=== PATIENT | female | born 1990 | race Caucasian/White ===

== ENCOUNTER → 2016-12-19 | Outpatient (CLI) | payer BC ==
--- NOTE | 2016-12-20 09:49 | US ---
Examination: Greater than 14 weeks transabdominal ultrasound with color Doppler and M-mode evaluatio n. HISTORY: Supervision abnormal FINDINGS: LMP is 05/14/2016 EVALUATION: Posterior placenta with a cephalic lie and grade 2. Visually amniotic fluid is wit hin normal limits. The cervix is not well characterized. Three-vessel cord is seen. Ventricles are within normal limits. Four chamber heart is noted. Heart rate is 157 beats per minute. BIOMETRY AND GESTATIONAL AGE: Biparietal diameter 8.4 cm. The abdominal circumference measures 26 cm. The femoral length is 6.6 cm with head circumference of 29.1 cm. Gestational age is 31 weeks and 2 days. The expected date of de livery is approximately 02/18/2017. Fetus weight is 1541 grams. Overall the fetus is within the 12th percentile. Other detail anatomy summarized into PACs sheet after the images. No anatomical anomalies. However fine detail is limited secondary to age. IMPRESSION: Single active IU with cephalic fetus. Posterior placenta with grade 2. No anomalies are se en. Amniotic fluid appears within normal limits.
== END ==
LOC: MW.US 14:36
PROVIDERS: ATTEND Advanced Practice Midwife
DX: Z34.93 Encounter for supervision of normal pregnancy, unspecified, third trimester (principal); Z3A.31 31 weeks gestation of pregnancy
CPT/HCPCS: 76805; 76805-26

== ENCOUNTER 2017-02-27 19:01 | Inpatient (IN) | payer BC, MEDICAID ==
[2017-02-27] MEDS ORDERED: Carboprost Tromethamine 250 MCG/1 ML Amp IM PRN (20:19)
[2017-02-27] MEDS ORDERED: Sodium Chloride 0.9% 2.5 ML Syringe FLUSH PRN (20:19)
[2017-02-27] MEDS ORDERED: Lidocaine 1% 50 ML MDV INJECT PRN (20:19)
[2017-02-27] MEDS ORDERED: Nalbuphine 10 MG/1 ML Vial IVPUSH PRN (20:19)
[2017-02-27] MEDS ORDERED: Sodium Chloride 0.9% 10 ML Syringe FLUSH PRN (20:19)
[2017-02-27] MEDS ORDERED: Misoprostol 200 MCG Tab PO PRN (20:19)
[2017-02-27] MEDS ORDERED: Methylergonovine 0.2 MG/1 ML Amp IM PRN (20:19)
[2017-02-27] MEDS ORDERED: Water For Irrigation,Sterile 1,000 ML Container IRR PRN (20:19)
[2017-02-27] MEDS ORDERED: Terbutaline 1 MG/ML SDV SUBCUT PRN (20:19)
[2017-02-27] MEDS ORDERED: Oxytocin/Lactated Ringers 30 UNIT/500 ML BAG IV SCH (20:30)
[2017-02-27] MEDS ORDERED: Misoprostol 25 MCG (1/4 of 100 MCG) Tab PO SCH (21:00)
[2017-02-27] MEDS ORDERED: Misoprostol 25 MCG (1/4 of 100 MCG) Tab VAG SCH (21:00)
--- NOTE | 2017-02-27 21:04 | PCM.LDHP ---
L&D History of Present Illness - General Date of Service: 02/27/17 Admit Problem/Dx: Patient Status Order with Admit Dx/Problem 02/27/17 20:19 Patient Status [ADT] Routine Admission Diagnosis/Problem Admission Diagnosis/Problem 02/27/17 20:59 26yo EDC 02/18/2017 41 3/7 wks. IOL for post dates, A+, RI, GBS neg. Source of Information: Patient History Limitations: Reports: No Limitations - History of Present Illness Improves with: Reports: None Worsens with: Reports: None Associated Symptoms: Reports: N - Related Data Allergies/Adverse Reactions: Allergies Allergy/AdvReac Type Severity Reaction Status Date / Time No Known Allergies Allergy Verified 04/27/16 22:51 Home Medications: Home Meds . [No Known Home Meds] 04/27/16 [History] Past Medical History Genitourinary History: Reports: Other (See Below) Other Genitourinary History: kidney infections, pyloric stenosis - Infectious Disease History Infectious Disease History: Reports: Chicken Pox - Past Surgical History Female Surgical History: Reports: Other (See Below) Social & Family History - Family History Endocrine/Metabolic: Reports: Diabetes, type II - Tobacco Use Smoking Status *Q: Current Every Day Smoker Years of Tobacco use: 10 Packs/Tins Daily: 1 - Caffeine Use Caffeine Use: Reports: None - Recreational Drug Use Recreational Drug Use: No H&P Review of Systems - Review of Systems: Review Of Systems: See Below General: Reports: No Symptoms HEENT: Reports: No Symptoms Pulmonary: Reports: No Symptoms Cardiovascular: Reports: No Symptoms Gastrointestinal: Reports: No Symptoms Genitourinary: Reports: No Symptoms Musculoskeletal: Reports: No Symptoms Skin: Reports: No Symptoms Psychiatric: Reports: No Symptoms Neurological: Reports: No Symptoms Hematologic/Lymphatic: Reports: No Symptoms Immunologic: Reports: No Symptoms L&D Exam - Exam Exam: See Below - Vital Signs Weight: 50.802 kg - Boyer Score Boyer Score Cervix Position: Midposition Boyer Score Consistency: Soft Boyer Score Effacement: 51-70% Boyer Score Dilation: 1-2 cm Boyer Score Infant's Station: -2 Boyer Score Total: 7 - Exam General: Alert, Oriented, Cooperative HEENT: Hearing Intact Lungs: Normal Respiratory Effort GI/Abdominal Exam: Soft, Non-Tender (gravid) Rectal Exam: Deferred Back Exam: Full Range of Motion Extremities: Normal Range of Motion, Non-Tender Skin: Warm, Dry, Intact Neurological: Cranial Nerves Intact, Normal Gait, Normal Speech, Normal Tone Psychiatric: Alert, Normal Affect, Normal Mood - Patient Data Lab Results Last 24 hrs: Laboratory Results - last 24 hr 02/27/17 Range/Units 20:38 WBC 10.02 (4.0-11.0) K/uL RBC 3.87 L (4.30-5.90) M/uL Hgb 12.1 (12.0-16.0) g/dL Hct 35.3 L (36.0-46.0) % MCV 91.2 (80.0-98.0) fL MCH 31.3 (27.0-32.0) pg MCHC 34.3 (31.0-37.0) g/dL RDW Std Deviation 44.0 (28.0-62.0) fl RDW Coeff of Abdias 13 (11.0-15.0) % Plt Count 188 (150-400) K/uL MPV 10.70 (7.40-12.00) fL Nucleated RBC % 0.0 /100WBC Nucleated RBCs # 0 K/uL Result Diagrams: 02/27/17 20:38 - Problem List (1) Supervision of normal IUP (intrauterine ) in multigravida SNOMED Code(s): 087753365, 492507875, 563678956 ICD Code: Z34.80 - ENCOUNTER FOR SUPRVSN OF NORMAL , UNSP TRIMESTER Status: Acute Priority: High Qualifiers: Trimester: third trimester Qualified Code(s): Z34.83 - Encounter for supervision of other normal , third trimester (2) Post-dates SNOMED Code(s): 68844565 ICD Code: O48.0 - POST-TERM Status: Acute Priority: High Qualifiers: Post-term type: 40-42 weeks gestation Qualified Code(s): O48.0 - Post-term Problem List Initiated/Reviewed/Updated: Yes Orders Last 24hrs: Active Orders 24 hr Category Date Time Status Patient Status [ADT] Routine ADT 02/27/17 20:19 Active Bedrest Bathroom Privileges [RC] ASDIRECTED Care 02/27/17 20:19 Active Communication Order [RC] ASDIRECTED Care 02/27/17 20:19 Active Communication Order [RC] ASDIRECTED Care 02/27/17 20:19 Active Communication Order [RC] ASDIRECTED Care 02/27/17 20:19 Active Heart Tones [RC] CONTINUOUS Care 02/27/17 20:19 Active Non Stress Test [RC] PER UNIT ROUTINE Care 02/27/17 20:19 Active May Shower [RC] ASDIRECTED Care 02/27/17 20:19 Active Notify Provider [RC] PRN Care 02/27/17 20:19 Active Notify Provider [RC] PRN Care 02/27/17 20:19 Active Notify Provider [RC] PRN Care 02/27/17 20:19 Active Notify Provider [RC] STAT Care 02/27/17 20:19 Active Oxygen Therapy [RC] ASDIRECTED Care 02/27/17 20:19 Active Up ad Jazmín [RC] ASDIRECTED Care 02/27/17 20:19 Active Vaginal Exam [RC] PRN Care 02/27/17 20:19 Active Vaginal Exam [RC] PRN Care 02/27/17 20:19 Active Vital Signs [RC] PER UNIT ROUTINE Care 02/27/17 20:19 Active Vital Signs [RC] PER UNIT ROUTINE Care 02/27/17 20:19 Active Regular Diet [DIET] Diet 02/28/17 Breakfast Active TYPE AND SCREEN [BBK] Routine Lab 02/27/17 20:38 Received Carboprost Tromethamine [Hemabate DS] Med 02/27/17 20:19 Active 250 mcg IM ASDIRECTED PRN Lactated Ringers [Ringers, Lactated] 1,000 ml Med 02/27/17 20:30 Active IV ASDIRECTED Lidocaine 1% [Xylocaine 1%] Med 02/27/17 20:19 Active 50 ml INJECT .ONCE PRN Methylergonovine [Methergine] Med 02/27/17 20:19 Active 0.2 mg IM ASDIRECTED PRN Misoprostol [Cytotec] Med 02/27/17 20:19 Active 200 mcg PO .ONCE PRN Misoprostol [Cytotec] Med 02/27/17 21:00 Active 25 mcg PO .ONCE Misoprostol [Cytotec] Med 02/28/17 01:00 Active 25 mcg PO Q4H PRN Misoprostol [Cytotec] Med 02/27/17 21:00 Active 25 mcg VAG .ONCE Misoprostol [Cytotec] Med 02/28/17 01:00 Active 25 mcg VAG Q4H PRN Nalbuphine [Nubain] Med 02/27/17 20:19 Active 10 mg IVPUSH Q1H PRN Oxytocin/Lactated Ringers [Pitocin in LR 30 Units/500 Med 02/27/17 20:30 Active ML] 30 unit in 500 ml IV TITRATE Oxytocin/Lactated Ringers [Pitocin in LR 30 Units/500 Med 02/28/17 12:00 Active ML] 30 unit in 500 ml IV TITRATE Sodium Chloride 0.9% [Saline Flush] Med 02/27/17 20:19 Active 10 ml FLUSH ASDIRECTED PRN Sodium Chloride 0.9% [Saline Flush] Med 02/27/17 20:19 Active 2.5 ml FLUSH ASDIRECTED PRN Terbutaline [Brethine] Med 02/27/17 20:19 Active 0.25 mg SUBCUT ASDIRECTED PRN Water For Irrigation,Sterile [Sterile Water for Med 02/27/17 20:19 Active Irrigation] 1,000 ml IRR ASDIRECTED PRN Scalp Electrode [WOMSER] Per Unit Routine Ot 02/27/17 20:19 Ordered Medication Administration Instruction [OM.PC] Q3H Oth 02/27/17 20:30 Ordered Peripheral IV Insertion Adult [OM.PC] Routine Oth 02/27/17 20:19 Ordered Resuscitation Status Routine Resus Stat 02/27/17 20:19 Ordered Medication Orders Carboprost Tromethamine (Hemabate Ds) 250 mcg IM ASDIRECTED PRN PRN Reason: Post Hemorrhage Lactated Ringer's (Ringers, Lactated) 1,000 mls @ 150 mls/hr IV ASDIRECTED ALEXANDRA Oxytocin/Lactated Ringer's (Pitocin In Lr 30 Units/500 Ml) 30 unit in 500 mls @ 2 mls/hr IV TITRATE ALEXANDRA; 2 MUNITS/MIN PRN Reason: Protocol Oxytocin/Lactated Ringer's (Pitocin In Lr 30 Units/500 Ml) 30 unit in 500 mls @ 500 mls/hr IV TITRATE ALEXANDRA PRN Reason: 500 MUNITS/MIN Stop: 02/28/17 12:59 Lidocaine HCl (Xylocaine 1%) 50 ml INJECT .ONCE PRN PRN Reason: Laceration repair Methylergonovine Maleate (Methergine) 0.2 mg IM ASDIRECTED PRN PRN Reason: Post Hemorrhage Misoprostol (Cytotec) 25 mcg VAG .ONCE ALEXANDRA Misoprostol (Cytotec) 25 mcg VAG Q4H PRN PRN Reason: Cervical Ripening Stop: 03/01/17 05:01 Misoprostol (Cytotec) 200 mcg PO .ONCE PRN PRN Reason: Post Hemorrhage Misoprostol (Cytotec) 25 mcg PO .ONCE ALEXANDRA Misoprostol (Cytotec) 25 mcg PO Q4H PRN PRN Reason: Cervical Ripening Stop: 03/01/17 05:01 Nalbuphine HCl (Nubain) 10 mg IVPUSH Q1H PRN PRN Reason: Pain (severe 7-10) Stop: 02/27/17 22:20 Sodium Chloride (Saline Flush) 10 ml FLUSH ASDIRECTED PRN PRN Reason: Keep Vein Open Sodium Chloride (Saline Flush) 2.5 ml FLUSH ASDIRECTED PRN PRN Reason: Keep Vein Open Sterile Water (Sterile Water For Irrigation) 1,000 ml IRR ASDIRECTED PRN PRN Reason: delivery Terbutaline Sulfate (Brethine) 0.25 mg SUBCUT ASDIRECTED PRN PRN Reason: Tacysystole Assessment/Plan Comment:: IOL A: 26yo EDC 02/18/2017 41 3/7 wks. IOL for post dates, A+, RI, GBS neg. P: Admit to L&D, Cytotec IOL, then pitocin in the am. Epidural/pain meds prn, anticipate
[2017-02-27] MEDS ORDERED: Misoprostol 25 MCG (1/4 of 100 MCG) Tab ONE ×2 (21:07→21:08)
[2017-02-28] MEDS ORDERED: Nalbuphine 10 MG/1 ML Vial IVPUSH PRN ×2 (00:24→19:12)
[2017-02-28] MEDS ORDERED: Misoprostol 25 MCG (1/4 of 100 MCG) Tab PO PRN (01:15)
[2017-02-28] MEDS ORDERED: Misoprostol 25 MCG (1/4 of 100 MCG) Tab VAG PRN (01:15)
[2017-02-28] MEDS ORDERED: Misoprostol 25 MCG (1/4 of 100 MCG) Tab ONE (01:18)
[2017-02-28] MEDS: Misoprostol 25 MCG (1/4 of 100 MCG) Tab PO PRN ×2 (01:23→05:07)
[2017-02-28] MEDS: Misoprostol 25 MCG (1/4 of 100 MCG) Tab VAG PRN ×2 (01:23→05:07)
[2017-02-28] MEDS: Lactated Ringers 1,000 ML IV SCH ×3 (09:19→14:38)
--- NOTE | 2017-02-28 09:50 | PCM.PREANE ---
Preanesthetic Assessment - Anesthesia/Transfusion/Family Hx Anesthesia History: Prior Anesthesia Without Reaction Transfusion History: No Prior Transfusion(s) - Review of Systems General: No Symptoms Pulmonary: No Symptoms Cardiovascular: No Symptoms Gastrointestinal: No Symptoms Neurological: No Symptoms Other: Reports: None - Physical Assessment Vital Signs: Last Vital Signs Temp 97.8 F 02/27/17 21:05 Pulse Resp BP Pulse Ox Height: 5 ft 6 in Weight: 50.802 kg ASA Class: 2 Mental Status: Alert & Oriented x3 Airway Class: Mallampati = 2 Dentition: Reports: Normal Dentition Thyro-Mental Finger Breadths: 3 Mouth Opening Finger Breadths: 3 ROM/Head Extension: Full Lungs: Clear to Auscultation, Normal Respiratory Effort Cardiovascular: Regular Rate, Regular Rhythm - Lab Values: Laboratory Last Values WBC 10.02 K/uL (4.0-11.0) 02/27/17 20:38 RBC 3.87 M/uL (4.30-5.90) L 02/27/17 20:38 Hgb 12.1 g/dL (12.0-16.0) 02/27/17 20:38 Hct 35.3 % (36.0-46.0) L 02/27/17 20:38 MCV 91.2 fL (80.0-98.0) 02/27/17 20:38 MCH 31.3 pg (27.0-32.0) 02/27/17 20:38 MCHC 34.3 g/dL (31.0-37.0) 02/27/17 20:38 RDW Std Deviation 44.0 fl (28.0-62.0) 02/27/17 20:38 RDW Coeff of Abdias 13 % (11.0-15.0) 02/27/17 20:38 Plt Count 188 K/uL (150-400) 02/27/17 20:38 MPV 10.70 fL (7.40-12.00) 02/27/17 20:38 Nucleated RBC % 0.0 /100WBC 02/27/17 20:38 Nucleated RBCs # 0 K/uL 02/27/17 20:38 Blood Type A POSITIVE 02/27/17 20:38 Antibody Screen NEGATIVE 02/27/17 20:38 - Allergies Allergies/Adverse Reactions: Allergies Allergy/AdvReac Type Severity Reaction Status Date / Time No Known Allergies Allergy Verified 04/27/16 22:51 - Acknowledgements Anesthesia Type Planned: Epidural Pt an Appropriate Candidate for the Planned Anesthesia: Yes Alternatives and Risks of Anesthesia Discussed w Pt/Guardian: Yes Pt/Guardian Understands and Agrees with Anesthesia Plan: Yes PreAnesthesia Questionnaire HEENT History: Reports: None Cardiovascular History: Reports: None Respiratory History: Reports: None Gastrointestinal History: Reports: GERD Genitourinary History: Reports: Other (See Below) Other Genitourinary History: kidney infections, pyloric stenosis 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: , Therapeutic Musculoskeletal History: Reports: None Neurological History: Reports: None Psychiatric History: Reports: None Endocrine/Metabolic History: Reports: None Hematologic History: Reports: None Immunologic History: Reports: None Oncologic (Cancer) History: Reports: None Dermatologic History: Reports: None - Infectious Disease History Infectious Disease History: Reports: Chicken Pox - Past Surgical History Female Surgical History: Reports: Other (See Below) - SUBSTANCE USE Smoking Status *Q: Current Every Day Smoker Tobacco Use Within Last Twelve Months: Cigarettes Second Hand Smoke Exposure: Yes Recreational Drug Use History: No - HOME MEDS Home Medications: Home Meds . [No Known Home Meds] 04/27/16 [History] - CURRENT (IN HOUSE) MEDS Current Meds: Current Medications Carboprost Tromethamine (Hemabate Ds) 250 mcg IM ASDIRECTED PRN PRN Reason: Post Hemorrhage Lactated Ringer's (Ringers, Lactated) 1,000 mls @ 150 mls/hr IV ASDIRECTED ALEXANDRA Last Admin: 02/28/17 09:19 Dose: 150 mls/hr Oxytocin/Lactated Ringer's (Pitocin In Lr 30 Units/500 Ml) 30 unit in 500 mls @ 2 mls/hr IV TITRATE ALEXANDRA; 2 MUNITS/MIN PRN Reason: Protocol Oxytocin/Lactated Ringer's (Pitocin In Lr 30 Units/500 Ml) 30 unit in 500 mls @ 500 mls/hr IV TITRATE ALEXANDRA PRN Reason: 500 MUNITS/MIN Stop: 02/28/17 12:59 Lidocaine HCl (Xylocaine 1%) 50 ml INJECT .ONCE PRN PRN Reason: Laceration repair Methylergonovine Maleate (Methergine) 0.2 mg IM ASDIRECTED PRN PRN Reason: Post Hemorrhage Misoprostol (Cytotec) 25 mcg VAG .ONCE ALEXANDRA Last Admin: 02/27/17 21:13 Dose: 25 mcg Misoprostol (Cytotec) 25 mcg VAG Q4H PRN PRN Reason: Cervical Ripening Stop: 03/01/17 05:01 Last Admin: 02/28/17 05:07 Dose: 25 mcg Misoprostol (Cytotec) 200 mcg PO .ONCE PRN PRN Reason: Post Hemorrhage Misoprostol (Cytotec) 25 mcg PO .ONCE ALEXANDRA Last Admin: 02/27/17 21:14 Dose: 25 mcg Misoprostol (Cytotec) 25 mcg PO Q4H PRN PRN Reason: Cervical Ripening Stop: 03/01/17 05:01 Last Admin: 02/28/17 05:07 Dose: 25 mcg Misoprostol (Cytotec) 25 mcg PO Q4H PRN PRN Reason: Other Misoprostol (Cytotec) 25 mcg VAG Q4H PRN PRN Reason: Other Nalbuphine HCl (Nubain) 10 mg IVPUSH Q1H PRN PRN Reason: Pain Last Admin: 02/28/17 09:06 Dose: 10 mg Sodium Chloride (Saline Flush) 10 ml FLUSH ASDIRECTED PRN PRN Reason: Keep Vein Open Sodium Chloride (Saline Flush) 2.5 ml FLUSH ASDIRECTED PRN PRN Reason: Keep Vein Open Sterile Water (Sterile Water For Irrigation) 1,000 ml IRR ASDIRECTED PRN PRN Reason: delivery Terbutaline Sulfate (Brethine) 0.25 mg SUBCUT ASDIRECTED PRN PRN Reason: Tacysystole Discontinued Medications Misoprostol (Cytotec) Confirm Administered Dose 25 mcg .ROUTE .STK-MED ONE Stop: 02/27/17 21:08 Last Admin: 02/27/17 21:14 Dose: Not Given Misoprostol (Cytotec) Confirm Administered Dose 25 mcg .ROUTE .STK-MED ONE Stop: 02/27/17 21:09 Last Admin: 02/27/17 21:14 Dose: Not Given Misoprostol (Cytotec) Confirm Administered Dose 25 mcg .ROUTE .STK-MED ONE Stop: 02/28/17 01:19 Last Admin: 02/28/17 01:24 Dose: Not Given Nalbuphine HCl (Nubain) 10 mg IVPUSH Q1H PRN PRN Reason: Pain (severe 7-10) Stop: 02/27/17 22:20
[2017-02-28] MEDS ORDERED: fentaNYL 100 MCG/2 ML SDV ONE (09:52)
[2017-02-28] MEDS ORDERED: Ropivacaine HCl/PF 100 ML ONE (09:52)
[2017-02-28] MEDS ORDERED: Oxytocin/Lactated Ringers 30 UNIT/500 ML BAG IV SCH (12:00)
[2017-02-28] MEDS ORDERED: Oxytocin/Lactated Ringers 0 UNIT/0 ML BAG ONE (14:41)
[2017-02-28] MEDS ORDERED: Bupivacaine 0.5% 10 ML SDV ONE (18:04)
[2017-02-28] MEDS ORDERED: Ondansetron 4 MG/2 ML SDV ONE (18:17)
[2017-02-28] MEDS ORDERED: Oxytocin 10 Units/1 ML SDV ONE (18:17)
[2017-02-28] MEDS ORDERED: Morphine PF 10 MG/10 ML SDV ONE (18:23)
[2017-02-28] MEDS ORDERED: Octyl 2-Cyanoacrylate 1 Tube ONE (18:53)
[2017-02-28] MEDS ORDERED: diphenhydrAMINE 50 MG/ML SDV IVPUSH PRN ×2 (18:55→19:12)
[2017-02-28] MEDS ORDERED: Bisacodyl 10 MG Supp RECTAL PRN (18:55)
[2017-02-28] MEDS ORDERED: Lanolin 100% Cream 7 GM Tube TOP PRN (18:55)
[2017-02-28] MEDS ORDERED: Acetaminophen/oxyCODONE 325-5 MG Tab PO PRN (18:55)
[2017-02-28] MEDS ORDERED: Ondansetron 4 MG/2 ML SDV IV PRN (18:55)
--- NOTE | 2017-02-28 18:59 | PCM.OPNOTE ---
- General Post-Op/Procedure Note Date of Surgery/Procedure: 02/28/17 Operative Procedure(s): Term Primary C/ Section Pre Op Diagnosis: Term Primary C/ Section Post-Op Diagnosis: Same Anesthesia Technique: Epidural Primary Surgeon: Pravin Kaiser Facilities And Grounds Director: Carolyn Damian EBL in mLs: 600 Complications: None Condition: Good
[2017-02-28] MEDS ORDERED: Lactated Ringers 1,000 ML IV SCH (19:00)
[2017-02-28] MEDS ORDERED: Naloxone 0.4 MG/ML Syringe IVPUSH PRN (19:12)
[2017-02-28] MEDS: Ketorolac 30 MG/ML SDV IVPUSH SCH (19:24)
--- NOTE | 2017-02-28 19:51 | PCM.POSTAN ---
POST ANESTHESIA ASSESSMENT - MENTAL STATUS Mental Status: Alert - RESPIRATORY Respiratory Status: Respiratory Rate WNL, Airway Patent, O2 Saturation Stable - CARDIOVASCULAR CV Status: Pulse Rate WNL, Blood Pressure Stable - GASTROINTESTINAL GI Status: No Symptoms - PAIN Pain Score: 0 (Epidural) - POST OP HYDRATION Hydration Status: Adequate & Stable
--- NOTE | 2017-02-28 20:30 | OR ---
SURGEON: Pravin Kaiser MD DATE OF PROCEDURE: PREOPERATIVE DIAGNOSES: 1. Postdate , failure to progress. 2. Primary low transverse section. POSTOPERATIVE DIAGNOSES: 1. Postdate , failure to progress. 2. Primary low transverse section. OPERATION PERFORMED: Primary low transverse section. MUSIC STORE MANAGER: Carolyn Damian, certified nurse drafter civil engineering. ANESTHESIA: Epidural by Cricket Herndon and Dr. Pack. ESTIMATED BLOOD LOSS: 700 mL. COMPLICATIONS: None. FINDINGS: Male fetus in an occiput posterior position. Normal uterus, tubes, and ovaries. INDICATION: This patient is 26. She is primigravida. She is postdate. She is admitted for an elective induction. She responded very well for the elective induction. She became complete, complete and she pushed for an hour and half without any descend. I was consulted to evaluate the patient. Upon examination, she is complete, complete and she is felt to be that the position is an occiput posterior and she was -3. She was not amenable to vacuum extraction and decision was made to do primary low-transverse section. Her heart rate was category 1 through the entire process of labor. PROCEDURE IN DETAIL: The patient was brought to the OR, properly identified, and after adequate level of epidural anesthesia with a Parker catheter in the bladder, the patient prepped and draped in sterile fashion as usual. Low transverse Pfannenstiel skin incision was done. The Kemal's fascia and rectus fascia were opened in direction of the incision. All bleeders were stopped using electrocautery, then the fascia was opened in the direction of the incision, and then fascia dissected downward and upward to accommodate the delivery of the fetus, and then the two recti muscles , and the peritoneal cavity was entered. Bladder flap was raised in the usual manner pushing the bladder away from the lower uterine segment. Low transverse uterine incision was done extended with the hand, the fetus was in an occiput posterior position and it was delivered without any problem. The fetus cried immediately. score reported to be 8 and 9. The weight is not available. The placenta delivered spontaneous, complete, and intact and then repair of the lower uterine segment was done with 2-0 Vicryl in continuous interlocking with 2-0 Vicryl. Inspection of the lower uterine segment shows no oozing, no bleeding. Then, the reperitonealization of the lower uterine segment was done with 2-0 Vicryl continuous and the peritoneal cavity evacuated completely from all blood and blood clot and closed with 3-0 Vicryl continuous and the rectus fascia was closed with #1 PDS double strand continuous. The Kemal's fascia was closed with 3-0 Vicryl continuous and the skin closed with 5-0 Monofilament continuous and Dermabond. Instrument and sponge count were correct. The patient tolerated the procedure well and went to recovery room in stable general condition. RAJ / EARNEST /[id number]
[2017-02-28] MEDS: Docusate Sodium 100 MG Cap PO SCH (20:40)
[2017-03-01] MEDS: Ketorolac 30 MG/ML SDV IVPUSH SCH ×4 (00:53→18:36)
[2017-03-01] MEDS: Docusate Sodium 100 MG Cap PO SCH ×2 (09:13→22:01)
--- NOTE | 2017-03-01 11:54 | PCM.PNPP ---
- General Info Date of Service: 03/01/17 Functional Status: Reports: Pain Controlled - Review of Systems General: Reports: No Symptoms HEENT: Reports: No Symptoms Pulmonary: Reports: No Symptoms Cardiovascular: Reports: No Symptoms Gastrointestinal: Reports: No Symptoms Genitourinary: Reports: No Symptoms Musculoskeletal: Reports: No Symptoms Skin: Reports: No Symptoms Neurological: Reports: No Symptoms Psychiatric: Reports: No Symptoms - General Info Date of Service: 03/01/17 - Patient Data Vital Signs - Most Recent: Last Vital Signs Temp 37.4 C 03/01/17 08:00 Pulse 90 03/01/17 11:00 Resp 18 03/01/17 11:00 BP 105/55 L 03/01/17 08:00 Pulse Ox 94 L 03/01/17 11:00 Weight - Most Recent: 50.802 kg I&O - Last 24 Hours: Intake & Output 02/28/17 03/01/17 03/01/17 22:59 06:59 14:59 Intake Total 1900 986 Output Total 250 1150 Balance 1650 986 -1150 Lab Results - Last 24 Hours: Laboratory Results - last 24 hr 03/01/17 Range/Units 04:49 Hgb 10.5 L (12.0-16.0) g/dL Hct 30.6 L (36.0-46.0) % Med Orders - Current: Current Medications Bisacodyl (Dulcolax) 10 mg RECTAL .ONCE PRN PRN Reason: Constipation Carboprost Tromethamine (Hemabate Ds) 250 mcg IM ASDIRECTED PRN PRN Reason: Post Hemorrhage Diphenhydramine HCl (Benadryl) 25 mg IVPUSH Q6H PRN PRN Reason: Itching or Nausea Diphenhydramine HCl (Benadryl) 25 mg IVPUSH Q4H PRN PRN Reason: Itching Stop: 03/01/17 19:13 Docusate Sodium (Colace) 100 mg PO BID ALEXANDRA Last Admin: 03/01/17 09:13 Dose: 100 mg Emollient Ointment (Lansinoh Hpa) 0 gm TOP ASDIRECTED PRN PRN Reason: Sore Nipples Last Admin: 02/28/17 23:25 Dose: 7 gm Oxytocin/Lactated Ringer's (Pitocin In Lr 30 Units/500 Ml) 30 unit in 500 mls @ 2 mls/hr IV TITRATE ALEXANDRA; 2 MUNITS/MIN PRN Reason: Protocol Lactated Ringer's (Ringers, Lactated) 1,000 mls @ 125 mls/hr IV ASDIRECTED ALEXANDRA Last Admin: 02/28/17 20:45 Dose: 125 mls/hr Ibuprofen (Motrin) 800 mg PO Q8H PRN PRN Reason: mild pain or fever Ketorolac Tromethamine (Toradol) 30 mg IVPUSH Q6H ALEXANDRA Stop: 03/01/17 19:01 Last Admin: 03/01/17 06:48 Dose: 30 mg Lidocaine HCl (Xylocaine 1%) 50 ml INJECT .ONCE PRN PRN Reason: Laceration repair Methylergonovine Maleate (Methergine) 0.2 mg IM ASDIRECTED PRN PRN Reason: Post Hemorrhage Misoprostol (Cytotec) 25 mcg VAG .ONCE ALEXANDRA Last Admin: 02/27/17 21:13 Dose: 25 mcg Misoprostol (Cytotec) 200 mcg PO .ONCE PRN PRN Reason: Post Hemorrhage Misoprostol (Cytotec) 25 mcg PO .ONCE ALEXANDRA Last Admin: 02/27/17 21:14 Dose: 25 mcg Misoprostol (Cytotec) 25 mcg PO Q4H PRN PRN Reason: Other Misoprostol (Cytotec) 25 mcg VAG Q4H PRN PRN Reason: Other Nalbuphine HCl (Nubain) 10 mg IVPUSH Q1H PRN PRN Reason: Pain Last Admin: 02/28/17 09:06 Dose: 10 mg Nalbuphine HCl (Nubain) 5 mg IVPUSH Q3H PRN PRN Reason: Pruritis Stop: 03/01/17 19:13 Last Admin: 03/01/17 09:58 Dose: 5 mg Naloxone HCl (Narcan) 0.1 mg IVPUSH ONETIME PRN PRN Reason: Respiratory Depression Stop: 03/01/17 19:13 Ondansetron HCl (Zofran) 4 mg IV Q4H PRN PRN Reason: Nausea/Vomiting Last Admin: 02/28/17 23:25 Dose: 4 mg Oxycodone/Acetaminophen (Percocet 325-5 Mg) 1 tab PO Q4H PRN PRN Reason: Pain (moderate 4-6) Oxycodone/Acetaminophen (Percocet 325-5 Mg) 2 tab PO Q4H PRN PRN Reason: Pain (moderate 4-6) Sodium Chloride (Saline Flush) 10 ml FLUSH ASDIRECTED PRN PRN Reason: Keep Vein Open Sodium Chloride (Saline Flush) 2.5 ml FLUSH ASDIRECTED PRN PRN Reason: Keep Vein Open Sterile Water (Sterile Water For Irrigation) 1,000 ml IRR ASDIRECTED PRN PRN Reason: delivery Terbutaline Sulfate (Brethine) 0.25 mg SUBCUT ASDIRECTED PRN PRN Reason: Tacysystole Discontinued Medications Bupivacaine HCl (Sensorcaine-Mpf 0.5%) Confirm Administered Dose 20 ml .ROUTE .STK-MED ONE Stop: 02/28/17 18:05 Fentanyl (Sublimaze) Confirm Administered Dose 100 mcg .ROUTE .STK-MED ONE Stop: 02/28/17 09:53 Lactated Ringer's (Ringers, Lactated) 1,000 mls @ 150 mls/hr IV ASDIRECTED [facility] Last Admin: 02/28/17 14:38 Dose: 150 mls/hr Oxytocin/Lactated Ringer's (Pitocin In Lr 30 Units/500 Ml) 30 unit in 500 mls @ 500 mls/hr IV TITRATE ALEXANDRA PRN Reason: 500 MUNITS/MIN Stop: 02/28/17 12:59 Ropivacaine (Naropin 0.2%) Confirm Administered Dose 100 mls @ as directed .ROUTE .STK-MED ONE Stop: 02/28/17 09:53 Oxytocin/Lactated Ringer's (Pitocin In Lr 30 Units/500 Ml) Confirm Administered Dose 30 unit in 500 mls @ as directed .ROUTE .STK-MED ONE Stop: 02/28/17 14:42 Misoprostol (Cytotec) 25 mcg VAG Q4H PRN PRN Reason: Cervical Ripening Stop: 03/01/17 05:01 Last Admin: 02/28/17 05:07 Dose: 25 mcg Misoprostol (Cytotec) 25 mcg PO Q4H PRN PRN Reason: Cervical Ripening Stop: 03/01/17 05:01 Last Admin: 02/28/17 05:07 Dose: 25 mcg Misoprostol (Cytotec) Confirm Administered Dose 25 mcg .ROUTE .STK-MED ONE Stop: 02/27/17 21:08 Last Admin: 02/27/17 21:14 Dose: Not Given Misoprostol (Cytotec) Confirm Administered Dose 25 mcg .ROUTE .STK-MED ONE Stop: 02/27/17 21:09 Last Admin: 02/27/17 21:14 Dose: Not Given Misoprostol (Cytotec) Confirm Administered Dose 25 mcg .ROUTE .STK-MED ONE Stop: 02/28/17 01:19 Last Admin: 02/28/17 01:24 Dose: Not Given Morphine Sulfate (Duramorph Pf) Confirm Administered Dose 10 mg .ROUTE .STK-MED ONE Stop: 02/28/17 18:24 Nalbuphine HCl (Nubain) 10 mg IVPUSH Q1H PRN PRN Reason: Pain (severe 7-10) Stop: 02/27/17 22:20 Octyl Cyanoacrylate (Dermabond Advance) Confirm Administered Dose 1 applic .ROUTE .STK-MED ONE Stop: 02/28/17 18:54 Ondansetron HCl (Zofran) Confirm Administered Dose 4 mg .ROUTE .STK-MED ONE Stop: 02/28/17 18:18 Oxytocin (Pitocin) Confirm Administered Dose 20 unit .ROUTE .STK-MED ONE Stop: 02/28/17 18:18 - Infant Interaction Disposition, : Winifred in Room with Family Infant Interaction: Holding Infant Feeding: Attempted ; Nursed Fair/Poor Support Person: Mother, Significant Other - Recovery Exam Fundal Tone: Firm Fundal Level: 1 Fingerbreadths Below Umbilicus Fundal Placement: Midline Lochia Amount: Scant Lochia Color: Rubra/Red Perineum Description: Intact, Minimal Bruising/Swelling Episiotomy/Laceration: None Bladder Status: Indwelling Catheter in Place Urinary Elimination: Indwelling Catheter - Exam General: Alert, Oriented HEENT: Pupils Equal Neck: Supple Lungs: Clear to Auscultation, Normal Respiratory Effort Cardiovascular: Regular Rate, Regular Rhythm GI/Abdominal Exam: Normal Bowel Sounds, Soft, Non-Tender, No Organomegaly, No Distention, No Abnormal Bruit, No Mass, Pelvis Stable Extremities: Normal Inspection, Normal Range of Motion, Non-Tender, No Pedal Edema, Normal Capillary Refill Skin: Warm, Dry, Intact Wound/Incisions: Healing Well Neurological: No New Focal Deficit Psy/Mental Status: Alert, Normal Affect, Normal Mood - Problem List Review Problem List Initiated/Reviewed/Updated: Yes - My Orders Last 24 Hours: My Active Orders 02/28/17 18:55 Patient Status [ADT] Routine Ambulate [RC] PER UNIT ROUTINE Communication Order [RC] PER UNIT ROUTINE Communication Order [RC] PER UNIT ROUTINE Communication Order [RC] Per Unit Routine May Shower [RC] ASDIRECTED RT Incentive Spirometry [RC] Q2HWA Acetaminophen/oxyCODONE [Percocet 325-5 MG] 1 tab PO Q4H PRN Acetaminophen/oxyCODONE [Percocet 325-5 MG] 2 tab PO Q4H PRN Bisacodyl [Dulcolax] 10 mg RECTAL .ONCE PRN Lanolin [Lansinoh HPA] See Dose Instructions TOP ASDIRECTED PRN Ondansetron [Zofran] 4 mg IV Q4H PRN diphenhydrAMINE [Benadryl] 25 mg IVPUSH Q6H PRN Assess Lochia [WOMSER] Per Unit Routine Assess Uterine Involution [WOMSER] Per Unit Routine Breast Pump [WOMSER] Per Unit Routine Peripheral IV Discontinue [OM.PC] Routine Sequential Compression Device [OM.PC] Per Unit Routine 02/28/17 18:56 Antiembolic Devices [RC] PER UNIT ROUTINE 02/28/17 19:00 Ketorolac [Toradol] 30 mg IVPUSH Q6H Lactated Ringers [Ringers, Lactated] 1,000 ml IV ASDIRECTED 02/28/17 21:00 Docusate Sodium [Colace] 100 mg PO BID 03/02/17 01:01 Ibuprofen [Motrin] 800 mg PO Q8H PRN - Assessment Assessment:: Doing well - Plan Plan:: IOL A: 26yo EDC 02/18/2017 41 3/ wks. IOL for post dates, A+, RI, GBS neg. P: Admit to L&D, Cytotec IOL, then pitocin in the am. Epidural/pain meds prn, anticipate
[2017-03-01] MEDS: Acetaminophen/oxyCODONE 325-5 MG Tab PO PRN (22:02)
[2017-03-02] MEDS ORDERED: Ibuprofen 800 MG Tab PO PRN (01:01)
[2017-03-02] MEDS: Acetaminophen/oxyCODONE 325-5 MG Tab PO PRN (05:43)
--- NOTE | 2017-03-02 07:28 | PCM48HPAN ---
Post Anesthesia Note - EVALUATION WITHIN 48HRS OF ANESTHETIC Vital Signs in Normal Range: Yes Patient Participated in Evaluation: Yes Respiratory Function Stable: Yes Airway Patent: Yes Cardiovascular Function Stable: Yes Hydration Status Stable: Yes Pain Control Satisfactory: Yes Nausea and Vomiting Control Satisfactory: Yes Mental Status Recovered: Yes
[2017-03-02 07:44] VITALS: BP 115/56
--- NOTE | 2017-03-02 09:35 | PCM.PNPP ---
- General Info Date of Service: 03/02/17 Functional Status: Reports: Pain Controlled - Review of Systems General: Reports: No Symptoms HEENT: Reports: No Symptoms Pulmonary: Reports: No Symptoms Cardiovascular: Reports: No Symptoms Gastrointestinal: Reports: No Symptoms Genitourinary: Reports: No Symptoms Musculoskeletal: Reports: No Symptoms Skin: Reports: No Symptoms Neurological: Reports: No Symptoms Psychiatric: Reports: No Symptoms - General Info Date of Service: 03/02/17 - Patient Data Vital Signs - Most Recent: Last Vital Signs Temp 36.4 C 03/02/17 07:41 Pulse 84 03/02/17 07:41 Resp 16 03/02/17 07:41 BP 115/56 L 03/02/17 07:41 Pulse Ox 94 L 03/02/17 07:41 Weight - Most Recent: 50.802 kg I&O - Last 24 Hours: Intake & Output 03/01/17 03/02/17 03/02/17 22:59 06:59 14:59 Intake Total 1000 Output Total 700 Balance 300 Med Orders - Current: Current Medications Bisacodyl (Dulcolax) 10 mg RECTAL .ONCE PRN PRN Reason: Constipation Carboprost Tromethamine (Hemabate Ds) 250 mcg IM ASDIRECTED PRN PRN Reason: Post Hemorrhage Diphenhydramine HCl (Benadryl) 25 mg IVPUSH Q6H PRN PRN Reason: Itching or Nausea Docusate Sodium (Colace) 100 mg PO BID ALEXANDRA Last Admin: 03/01/17 22:01 Dose: 100 mg Emollient Ointment (Lansinoh Hpa) 0 gm TOP ASDIRECTED PRN PRN Reason: Sore Nipples Last Admin: 02/28/17 23:25 Dose: 7 gm Oxytocin/Lactated Ringer's (Pitocin In Lr 30 Units/500 Ml) 30 unit in 500 mls @ 2 mls/hr IV TITRATE ALEXANDRA; 2 MUNITS/MIN PRN Reason: Protocol Lactated Ringer's (Ringers, Lactated) 1,000 mls @ 125 mls/hr IV ASDIRECTED ALEXANDRA Last Admin: 02/28/17 20:45 Dose: 125 mls/hr Ibuprofen (Motrin) 800 mg PO Q8H PRN PRN Reason: mild pain or fever Lidocaine HCl (Xylocaine 1%) 50 ml INJECT .ONCE PRN PRN Reason: Laceration repair Methylergonovine Maleate (Methergine) 0.2 mg IM ASDIRECTED PRN PRN Reason: Post Hemorrhage Misoprostol (Cytotec) 25 mcg VAG .ONCE ALEXANDRA Last Admin: 02/27/17 21:13 Dose: 25 mcg Misoprostol (Cytotec) 200 mcg PO .ONCE PRN PRN Reason: Post Hemorrhage Misoprostol (Cytotec) 25 mcg PO .ONCE ALEXANDRA Last Admin: 02/27/17 21:14 Dose: 25 mcg Misoprostol (Cytotec) 25 mcg PO Q4H PRN PRN Reason: Other Misoprostol (Cytotec) 25 mcg VAG Q4H PRN PRN Reason: Other Nalbuphine HCl (Nubain) 10 mg IVPUSH Q1H PRN PRN Reason: Pain Last Admin: 02/28/17 09:06 Dose: 10 mg Ondansetron HCl (Zofran) 4 mg IV Q4H PRN PRN Reason: Nausea/Vomiting Last Admin: 02/28/17 23:25 Dose: 4 mg Oxycodone/Acetaminophen (Percocet 325-5 Mg) 1 tab PO Q4H PRN PRN Reason: Pain (moderate 4-6) Oxycodone/Acetaminophen (Percocet 325-5 Mg) 2 tab PO Q4H PRN PRN Reason: Pain (moderate 4-6) Last Admin: 03/02/17 05:43 Dose: 2 tab Sodium Chloride (Saline Flush) 10 ml FLUSH ASDIRECTED PRN PRN Reason: Keep Vein Open Sodium Chloride (Saline Flush) 2.5 ml FLUSH ASDIRECTED PRN PRN Reason: Keep Vein Open Sterile Water (Sterile Water For Irrigation) 1,000 ml IRR ASDIRECTED PRN PRN Reason: delivery Terbutaline Sulfate (Brethine) 0.25 mg SUBCUT ASDIRECTED PRN PRN Reason: Tacysystole Discontinued Medications Bupivacaine HCl (Sensorcaine-Mpf 0.5%) Confirm Administered Dose 20 ml .ROUTE .STK-MED ONE Stop: 02/28/17 18:05 Diphenhydramine HCl (Benadryl) 25 mg IVPUSH Q4H PRN PRN Reason: Itching Stop: 03/01/17 19:13 Fentanyl (Sublimaze) Confirm Administered Dose 100 mcg .ROUTE .STK-MED ONE Stop: 02/28/17 09:53 Lactated Ringer's (Ringers, Lactated) 1,000 mls @ 150 mls/hr IV ASDIRECTED [facility] Last Admin: 02/28/17 14:38 Dose: 150 mls/hr Oxytocin/Lactated Ringer's (Pitocin In Lr 30 Units/500 Ml) 30 unit in 500 mls @ 500 mls/hr IV TITRATE ALEXANDRA PRN Reason: 500 MUNITS/MIN Stop: 02/28/17 12:59 Ropivacaine (Naropin 0.2%) Confirm Administered Dose 100 mls @ as directed .ROUTE .STK-MED ONE Stop: 02/28/17 09:53 Oxytocin/Lactated Ringer's (Pitocin In Lr 30 Units/500 Ml) Confirm Administered Dose 30 unit in 500 mls @ as directed .ROUTE .STK-MED ONE Stop: 02/28/17 14:42 Ketorolac Tromethamine (Toradol) 30 mg IVPUSH Q6H [facility] Stop: 03/01/17 19:01 Last Admin: 03/01/17 18:36 Dose: 30 mg Misoprostol (Cytotec) 25 mcg VAG Q4H PRN PRN Reason: Cervical Ripening Stop: 03/01/17 05:01 Last Admin: 02/28/17 05:07 Dose: 25 mcg Misoprostol (Cytotec) 25 mcg PO Q4H PRN PRN Reason: Cervical Ripening Stop: 03/01/17 05:01 Last Admin: 02/28/17 05:07 Dose: 25 mcg Misoprostol (Cytotec) Confirm Administered Dose 25 mcg .ROUTE .STK-MED ONE Stop: 02/27/17 21:08 Last Admin: 02/27/17 21:14 Dose: Not Given Misoprostol (Cytotec) Confirm Administered Dose 25 mcg .ROUTE .STK-MED ONE Stop: 02/27/17 21:09 Last Admin: 02/27/17 21:14 Dose: Not Given Misoprostol (Cytotec) Confirm Administered Dose 25 mcg .ROUTE .STK-MED ONE Stop: 02/28/17 01:19 Last Admin: 02/28/17 01:24 Dose: Not Given Morphine Sulfate (Duramorph Pf) Confirm Administered Dose 10 mg .ROUTE .STK-MED ONE Stop: 02/28/17 18:24 Nalbuphine HCl (Nubain) 10 mg IVPUSH Q1H PRN PRN Reason: Pain (severe 7-10) Stop: 02/27/17 22:20 Nalbuphine HCl (Nubain) 5 mg IVPUSH Q3H PRN PRN Reason: Pruritis Stop: 03/01/17 19:13 Last Admin: 03/01/17 09:58 Dose: 5 mg Naloxone HCl (Narcan) 0.1 mg IVPUSH ONETIME PRN PRN Reason: Respiratory Depression Stop: 03/01/17 19:13 Octyl Cyanoacrylate (Dermabond Advance) Confirm Administered Dose 1 applic .ROUTE .STK-MED ONE Stop: 02/28/17 18:54 Ondansetron HCl (Zofran) Confirm Administered Dose 4 mg .ROUTE .STK-MED ONE Stop: 02/28/17 18:18 Oxytocin (Pitocin) Confirm Administered Dose 20 unit .ROUTE .STK-MED ONE Stop: 02/28/17 18:18 - Infant Interaction Infant Disposition, : in Room with Family Infant Interaction: Holding Infant Feeding: Attempted ; Nursed Fair/Poor Support Person: Mother, Significant Other - Recovery Exam Fundal Tone: Firm Fundal Level: 1 Fingerbreadths Below Umbilicus Fundal Placement: Midline Lochia Amount: Scant Lochia Color: Rubra/Red Perineum Description: Intact, Minimal Bruising/Swelling Episiotomy/Laceration: None Bladder Status: Voiding Urinary Elimination: Voided - Exam General: Alert, Oriented HEENT: Pupils Equal Neck: Supple Lungs: Clear to Auscultation, Normal Respiratory Effort Cardiovascular: Regular Rate, Regular Rhythm GI/Abdominal Exam: Normal Bowel Sounds, Soft, Non-Tender, No Organomegaly, No Distention, No Abnormal Bruit, No Mass, Pelvis Stable Extremities: Normal Inspection, Normal Range of Motion, Non-Tender, No Pedal Edema, Normal Capillary Refill Skin: Warm, Dry, Intact Wound/Incisions: Healing Well Neurological: No New Focal Deficit Psy/Mental Status: Alert, Normal Affect, Normal Mood - Problem List Review Problem List Initiated/Reviewed/Updated: Yes - My Orders Last 24 Hours: My Active Orders 03/02/17 01:01 Ibuprofen [Motrin] 800 mg PO Q8H PRN - Assessment Assessment:: Doing well - Plan Plan:: IOL A: 26yo EDC 02/18/2017 41 3/ wks. IOL for post dates, A+, RI, GBS neg. P: Admit to L&D, Cytotec IOL, then pitocin in the am. Epidural/pain meds prn, anticipate
== END 2017-03-02 11:15 | disposition home or self-care (01) | DRG 540 ==
LOC: MW.OB 19:01 → MW.OBCHECK 19:01 → MW.OB 21:03 → OBSVTOIN 02-28 18:37 → MW.OB 02-28 22:41
PROVIDERS: ADMIT Obstetrics & Gynecology; ATTEND Obstetrics & Gynecology
PROC: 10D00Z1 Extraction of Products of Conception, Low, Open Approach (ICD-10-PCS; principal; 2017-02-28)
DX: O48.0 Post-term pregnancy (principal); O32.4XX0 Maternal care for high head at term, not applicable or unspecified; Z3A.41 41 weeks gestation of pregnancy; Z37.0 Single live birth
CPT/HCPCS: 01967; 01968; 36415; 59025; 85014; 85018; 85027; 86850; 86900; 86901; A9270-GY; J1885; J2270; J2300; J2405; J2590; J2795; J3010; J7120

== ENCOUNTER 2020-12-10 02:19 | Emergency (ER) | payer SELFPAY ==
[2020-12-10 03:00] VITALS: BP 119/74; PULSE 100
--- NOTE | 2020-12-10 03:10 | EDM.PDOC ---
ED HPI GENERAL MEDICAL PROBLEM - General Chief Complaint: General Stated Complaint: MEDICAL CLEARANCE Time Seen by Provider: 12/10/20 03:00 - History of Present Illness INITIAL COMMENTS - FREE TEXT/NARRATIVE: History of present illness: [] Patient admits intoxication with alcohol denies any medical complaint. She has no significant medical history. [facility] because of her level of intoxication. She is not arguing with that. She denies any need for medical care. Review of systems: As per history of present illness and below otherwise all systems reviewed and negative. Past medical history: As per history of present illness and as reviewed below otherwise noncontributory. Surgical history: As per history of present illness and as reviewed below otherwise noncontributory. Social history: No reported history of drug or alcohol abuse. Family history: As per history of present illness and as reviewed below otherwise noncontributory. Physical exam: Constitutional - well developed, well-nourished and in no acute distress HEENT - normocephalic, no evidence of trauma - external nose and mouth normal - no mass in neck and no JVD - mucosae moist EYES - full EOM, PERRL, no icterus - no evidence of inflammation, injection, or drainage Respiratory - no respiratory distress, equal bilateral expansion, lungs clear to auscultation and no abnormal lung sounds Cardiovascular - Regular Rhythm with S1 and S2 appreciated and no murmur, gallop or rub. GI - abdomen soft without distension or organomegaly - normal bowel sounds - no guard or rebound Musculoskeletal no gross deformity of long bones or joints - no tenderness, swelling or edema Neurologic - Alert and oriented times four - CN II-XII grossly intact - motor sensory and coordination symmetrically normal Psychiatric - appropriate mood and affect for circumstances-slightly labile affect with depressed mood with normal thought content Integument - no rash or evidence of trauma - normal turgor Diagnostics: [] Therapeutics: [] Impression: [] Plan: [] Definitive disposition and diagnosis as appropriate pending reevaluation and review of above. - Related Data Allergies Allergy/AdvReac Type Severity Reaction Status Date / Time No Known Allergies Allergy Verified 12/10/20 03:00 Home Meds: Home Meds . 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 Genitourinary History: Reports: Other (See Below) Other Genitourinary History: kidney infections, pyloric stenosis [employer] History: Reports: , Therapeutic Musculoskeletal History: Reports: None Neurological History: Reports: None Psychiatric History: Reports: None Endocrine/Metabolic History: Reports: None Hematologic History: Reports: None Immunologic History: Reports: None Oncologic (Cancer) History: Reports: None Dermatologic History: Reports: None - Infectious Disease History Infectious Disease History: Reports: Chicken Pox - Past Surgical History Female Surgical History: Reports: Other (See Below) Other Female Surgeries/Procedures: for pyloric stenosis Social & Family History - Family History Family Medical History: No Pertinent Family History Endocrine/Metabolic: Reports: Diabetes, type II - Tobacco Use Tobacco Use Status *Q: Current Every Day Tobacco User Years of Tobacco use: 18 Packs/Tins Daily: 1 - Caffeine Use Caffeine Use: Reports: None - Recreational Drug Use Recreational Drug Use: No Other Recreational Drug Type: quit 5 years ago ED ROS GENERAL - Review of Systems Review Of Systems: Comprehensive ROS is negative, except as noted in HPI. ED EXAM, GENERAL - Physical Exam Exam: See Below Free Text/Narrative:: My physical exam is in the HPI Course - Vital Signs Last Recorded V/S: Last Vital Signs Temp 36.0 C L 12/10/20 02:58 Pulse 100 12/10/20 02:58 Resp 20 12/10/20 02:58 BP 119/74 12/10/20 02:58 Pulse Ox 94 L 12/10/20 02:58 Departure - Departure Time of Disposition: 03:07 Disposition: Home, Self-Care 01 Condition: Good Clinical Impression: Alcohol intoxication, Medical clearance for incarceration - Discharge Information Instructions: Alcohol Intoxication, [id number] Referrals: PCP,None [Primary Care Provider] - Additional Instructions: [facility] - Primary Care [address] [place] [id number] [id number] The following information is given to patients seen in the emergency department who are being discharged to home. This information is to outline your options for follow-up care. We provide all patients seen in our emergency department with a follow-up referral. The need for follow-up, as well as the timing and circumstances, are variable depending upon the specifics of your emergency department visit. If you don't have a primary care physician on staff, we will provide you with a referral. We always advise you to contact your personal physician following an emergency department visit to inform them of the circumstance of the visit and for follow-up with them and/or the need for any referrals to a consulting specialist. The emergency department will also refer you to a specialist when appropriate. This referral assures that you have the opportunity for follow-up care with a specialist. All of these measure are taken in an effort to provide you with optimal care, which includes your follow-up. Under all circumstances we always encourage you to contact your private physician who remains a resource for coordinating your care. When calling for follow-up care, please make the office aware that this follow-up is from your recent emergency room visit. If for any reason you are refused follow-up, please contact the [facility] Emergency Department at and asked to speak to the emergency department charge nurse. Sepsis Event Note (ED) - Evaluation Sepsis Screening Result: No Definite Risk - Focused Exam Vital Signs: Vital Signs Temp Pulse Resp BP Pulse Ox 12/10/20 02:58 36.0 C L 100 20 119/74 94 L
== END 2020-12-10 03:15 | disposition home or self-care (01) ==
LOC: MW.ED 02:19
DX: F10.129 Alcohol abuse with intoxication, unspecified (principal); Z72.0 Tobacco use
CPT/HCPCS: 99282; 99283

== ENCOUNTER 2023-04-10 05:12 | Inpatient (IN) | payer BC ==
[2023-04-10] MEDS ORDERED: Oxytocin/0.9 % Sodium Chloride 30 UNIT/500 ML BAG IV SCH ×2 (05:15→08:15)
[2023-04-10] MEDS ORDERED: Sodium Chloride 0.9% 20 ML SDV IV PRN (05:15)
[2023-04-10] MEDS ORDERED: Sodium Chloride 0.9% 10 ML Syringe FLUSH PRN (05:15)
[2023-04-10] MEDS ORDERED: Sodium Chloride 0.9% 2.5 ML Syringe FLUSH PRN (05:15)
[2023-04-10] MEDS ORDERED: Lactated Ringers 1,000 ML IV SCH ×2 (05:15→08:15)
[2023-04-10] MEDS ORDERED: Citric Acid/Sodium Citrate Solution 30 ML Cup PO ONE (05:15)
[2023-04-10] MEDS ORDERED: ceFAZolin 2 GM in Sodium Chloride 0.9% 50 ML IV ONE (05:15)
[2023-04-10 06:11] LABS: HEMATOCRIT 33.8 % (36.0-46.0); HEMOGLOBIN 11.9 g/dL (12.0-16.0); MEAN CORPUSCULAR HEMOGLOBIN 31.6 pg (27.0-32.0); MEAN CORPUSCULAR HGB CONC 35.2 g/dL (31.0-37.0); MEAN CORPUSCULAR VOLUME 89.7 fL (80.0-98.0); RED BLOOD CELL COUNT 3.77 M/uL (4.30-5.90); WHITE BLOOD CELL COUNT,WBC 9.96 K/uL (4.0-11.0)
[2023-04-10] MEDS ORDERED: Morphine PF 10 MG/10 ML SDV ONE (07:17)
[2023-04-10] MEDS ORDERED: Dexmedetomidine 200 MCG/2 ML SDV ONE (07:17)
[2023-04-10] MEDS ORDERED: Water For Injection, Sterile 20 ML ONE (07:26)
[2023-04-10] MEDS ORDERED: Ropivacaine 0.5% 5 MG/ML 30 ML SDV ONE (07:28)
[2023-04-10] MEDS ORDERED: Ondansetron 4 MG/2 ML SDV ONE (07:30)
[2023-04-10] MEDS ORDERED: Bisacodyl 10 MG Supp RECTAL PRN (08:10)
[2023-04-10] MEDS ORDERED: diphenhydrAMINE 50 MG/ML SDV IVPUSH PRN ×2 (08:10→08:49)
[2023-04-10] MEDS ORDERED: Oxytocin 10 Units/1 ML SDV IM PRN (08:10)
[2023-04-10] MEDS ORDERED: Lanolin 100% Cream 7 GM Tube TOP PRN (08:10)
[2023-04-10] MEDS ORDERED: Misoprostol 200 MCG Tab RECTAL PRN (08:10)
[2023-04-10] MEDS ORDERED: Methylergonovine 0.2 MG/1 ML Amp IM PRN (08:10)
[2023-04-10] MEDS ORDERED: Ondansetron 4 MG/2 ML SDV IVPUSH PRN ×2 (08:10→08:49)
[2023-04-10] MEDS ORDERED: Acetaminophen/oxyCODONE 325-5 MG Tab PO PRN (08:10)
[2023-04-10] MEDS ORDERED: ceFAZolin 2 GM Vial ONE (08:13)
[2023-04-10] MEDS ORDERED: Ketorolac 30 MG/ML SDV IVPUSH SCH (08:15)
[2023-04-10] MEDS ORDERED: Phenylephrine HCl 0.5 MG/5 ML AMP ONE (08:23)
[2023-04-10] MEDS ORDERED: ePHEDrine 50 MG/ML SDV ONE (08:39)
[2023-04-10] MEDS ORDERED: Ketorolac 30 MG/ML SDV ONE (08:45)
[2023-04-10] MEDS ORDERED: ePHEDrine 50 MG/ML SDV IVPUSH PRN (08:49)
[2023-04-10] MEDS: Nicotine 14 MG/24 Hr Patch TRDERM SCH ×2 (12:40→20:27)
[2023-04-10] MEDS: Acetaminophen/oxyCODONE 325-5 MG Tab PO PRN ×2 (14:00→20:25)
[2023-04-10] MEDS: Ketorolac 30 MG/ML SDV IVPUSH SCH ×2 (15:14→21:16)
[2023-04-10] MEDS ORDERED: Acetaminophen 500 MG Tab PO PRN (16:00)
[2023-04-10 19:51] LABS: CREATININE,URINE RAND 33.5 mg/dL; PROTEIN CREATININE RATIO,URINE 0.2
[2023-04-10] MEDS: Docusate Sodium 100 MG Cap PO SCH (21:16)
[2023-04-11] MEDS: Ketorolac 30 MG/ML SDV IVPUSH SCH ×2 (03:11→09:30)
[2023-04-11 05:42] LABS: HEMATOCRIT 26.2 % (36.0-46.0)
[2023-04-11] MEDS: Docusate Sodium 100 MG Cap PO SCH ×2 (09:29→21:26)
[2023-04-11] MEDS: Acetaminophen/oxyCODONE 325-5 MG Tab PO PRN ×3 (13:15→21:26)
[2023-04-11] MEDS: Nicotine 14 MG/24 Hr Patch TRDERM SCH (21:23)
[2023-04-11] MEDS: Ibuprofen 800 MG Tab PO PRN (21:24)
[2023-04-12] MEDS: Acetaminophen/oxyCODONE 325-5 MG Tab PO PRN (05:45)
[2023-04-12] MEDS: Ibuprofen 800 MG Tab PO PRN (08:15)
[2023-04-12] MEDS: Docusate Sodium 100 MG Cap PO SCH (09:29)
[2023-04-12 11:53] VITALS: BP 144/74; PULSE 82
== END 2023-04-12 12:21 | disposition home or self-care (01) | DRG 788 ==
LOC: MW.OB 05:12
PROVIDERS: ADMIT Obstetrics & Gynecology Obstetrics; ATTEND Obstetrics & Gynecology Obstetrics
PROC: 10D00Z1 Extraction of Products of Conception, Low, Open Approach (ICD-10-PCS; principal; 2023-04-10)
PROC: 0T9B70Z Drainage of Bladder with Drainage Device, Via Natural or Artificial Opening (ICD-10-PCS; 2023-04-10)
DX: O34.211 Maternal care for low transverse scar from previous cesarean delivery (principal); O99.334 Smoking (tobacco) complicating childbirth; F17.210 Nicotine dependence, cigarettes, uncomplicated; Z37.0 Single live birth; Z3A.39 39 weeks gestation of pregnancy; Z79.899 Other long term (current) drug therapy
CPT/HCPCS: 01961; 36415; 64488; 82570; 84156; 85014; 85018; 85027; 86592; 86850; 86900; 86901; A9270-GY; J0131; J0690; J1885; J2274; J2370; J2405; J2795; J3490; J7120